=== PATIENT | male | born 1935 | race Two or more races ===

== ENCOUNTER → 2022-07-25 | Outpatient (CLI) | payer OTHER | END | disposition home or self-care (01) | LOC: LAB 12:20 | PROVIDERS: ATTEND Urology | DX: N40.1 Benign prostatic hyperplasia with lower urinary tract symptoms (principal) | CPT/HCPCS: 84153 ==

== ENCOUNTER → 2022-12-12 | Outpatient (CLI) | payer OTHER | END | disposition home or self-care (01) | LOC: XYW 12:48 | PROVIDERS: ATTEND Student in an Organized Health Care Education/Training Program | DX: I08.2 Rheumatic disorders of both aortic and tricuspid valves (principal); R06.02 Shortness of breath | CPT/HCPCS: 93306 ==

== ENCOUNTER 2023-03-20 03:58 | Inpatient (IN) | payer OTHER ==
[~2023-03-20] VITALS: Ht 182.9 cm; Wt 81.6 kg
[2023-03-20 04:52] LABS: Hematocrit 39.6 % (41.0-53.0); Hemoglobin 13.3 g/dL (13.5-17.5); Mean Corpuscular Hemoglobin 32.2 pg (28.0-32.0); Mean Corpuscular Hgb Conc. 33.6 g/dL (32.0-36.0); Mean Corpuscular Volume 95.6 fL (80.0-100.0); Red Blood Cells 4.14 10^6/uL (4.5-5.90); Red Cell Distribution Width 15.3 % (11.8-14.3); White Blood Cell 7.8 10^3/uL (4.4-10.8)
[2023-03-20 04:58] LABS: Chloride 109 mmol/L (98-107); Potassium 4.2 mmol/L (3.5-5.1); Sodium 141 mmol/L (136-145)
[2023-03-20 04:59] LABS: Anion Gap 8 (5-15); Carbon Dioxide 24 mmol/L (20-30)
[2023-03-20 05:00] VITALS: PULSE 60; RESP 22; O2SAT 96
[2023-03-20 05:00] LABS: Calcium 9.1 mg/dL (8.7-10.4)
[2023-03-20 05:02] LABS: Band Neutrophils % (manual) 0; Basophils % (manual) 0 (0.0-2.0); Blast Cells 0; Eosinophils % (manual) 0 (0-7); Metamyelocytes % 0; Myelocytes % 0; Promyelocytes % 0; Reactive Lymphocytes 0
[2023-03-20 05:04] LABS: BUN/Creatinine Ratio 11.9 (10.0-20.0); Blood Urea Nitrogen 17 mg/dL (9-23); Glucose 126 mg/dL (74-106)
[2023-03-20] MEDS: ONDANSETRON HCL 4 MG/2 ML VIAL IV ONE (05:52)
[2023-03-20] MEDS: MORPHINE SULFATE 4 MG/ML SYR/VIAL IV ONE (05:53)
[2023-03-20] MEDS: SODIUM CHLORIDE 0.9% 1,000 ML IV ONE (05:54)
[2023-03-20 05:56] LABS: Urine Epithelial Cast None Seen /hpf (<5)
[2023-03-20 06:32] LABS: Urine Bacteria FEW /hpf (None Seen); Urine Blood 2+ /uL (Negative); Urine Clarity HAZY (Clear); Urine Color Yellow (Yellow); Urine Hyaline Cast FEW /lpf (0 - 2); Urine Protein, UAD TRACE (Negative); Urine Specific Gravity 1.025 (1.001-1.035); Urine WBC 5 /hpf (0 - 3)
[2023-03-20 06:40] LABS: Lymphocytes % (manual) 70 (10.0-50.0); Monocytes % (manual) 6 (0-12)
[2023-03-20 06:41] LABS: Platelet Estimate Adequate
[2023-03-20] MEDS: D5W/SOD CHLO 0.9% 1,000 ML IV SCH (06:59)
[2023-03-20 07:02] LABS: INR 1.08 (0.9-1.15); Prothrombin Time 11.3 sec (9.3-11.8)
[2023-03-20 08:00] VITALS: PULSE 60; RESP 14; O2SAT 98
[2023-03-20] MEDS: GASTROGRAFIN 120 ML SOL ONE (08:39)
[2023-03-20 09:13] LABS: Albumin 4.5 g/dL (3.2-4.8); Bilirubin, Direct 0.2 mg/dL (<0.3); Bilirubin, Total 0.7 mg/dL (0.2-1.0); Total Protein 6.7 g/dL (5.7-8.2)
[2023-03-20 09:26] LABS: Amphetamine Screen, Urine Neg (NEGATIVE)
[2023-03-20 09:27] LABS: Barbiturate Scree,Urine Neg (NEGATIVE); Benzodiazephine Screen, Urine Neg (NEGATIVE); Cannabinoid Screen, Urine Neg (NEGATIVE); Cocaine Screen, Urine Neg (NEGATIVE); Opiate Scree,Urine Neg (NEGATIVE); Phencyclidine Screen, Urine Neg (NEGATIVE)
[2023-03-20 10:12] LABS: Magnesium 2.3 mg/dL (1.6-2.6)
[2023-03-20 10:46] VITALS: BP 109/74; PULSE 60; RESP 18; TEMP 98.9; O2SAT 98
[2023-03-20 11:40] VITALS: BP 109/74; PULSE 60; RESP 16; TEMP 98.9; O2SAT 98
[2023-03-20] MEDS: ONDANSETRON HCL 4 MG/2 ML VIAL IV PRN (12:10)
[2023-03-20] MEDS: MORPHINE SULFATE INJ 2 MG/ml SYRG IV PRN (12:11)
[2023-03-20] MEDS: metroNIDAZOLE 500MG/100ML 100 ML IV ONE (13:20)
[2023-03-20] MEDS: cefTRIAXone 1GM/50ML D5W 50 ML IV ONE (13:26)
[2023-03-20] MEDS: metroNIDAZOLE 500MG/100ML 100 ML IV SCH (14:00)
[2023-03-20 16:25] VITALS: BP 120/72; PULSE 60; RESP 18; TEMP 98.7; O2SAT 96
[2023-03-20 20:00] VITALS: PULSE 60; RESP 16
[2023-03-20] MEDS: hydrALAZINE HCL 20 MG/ML VL IV PRN (22:24)
[2023-03-21] VITALS (56 sets, daily range): BP systolic 78–141; BP diastolic 48–82; PULSE 60–100; RESP 13–26; TEMP 97.8–98.9; O2SAT 79–100
[2023-03-21 07:32] LABS: Basophils # (auto) 0 10 ^3/uL (0-0.2); Basophils % (auto) 0.2 % (0.0-2.0); Eosinophils # (auto) 0 10 ^3/uL (0-0.8); Hematocrit 38.4 % (41.0-53.0); Hemoglobin 12.9 g/dL (13.5-17.5); Lymphocytes # (auto) 0.9 10 ^3/uL (0.4-5.4); Lymphocytes % (auto) 8.5 % (10.0-50.0); Mean Corpuscular Hemoglobin 32.3 pg (28.0-32.0); Mean Corpuscular Hgb Conc. 33.6 g/dL (32.0-36.0); Mean Corpuscular Volume 96.1 fL (80.0-100.0); Monocytes # (auto) 0.9 10 ^3/uL (0-1.3); Monocytes % (auto) 8.6 % (0.0-12.0); Neutrophils # (auto) 8.3 10 ^3/uL (1.6-8.6); Neutrophils % (auto) 82.7 % (37.0-80.0); Red Cell Distribution Width 15.6 % (11.8-14.3); White Blood Cell 10.1 10^3/uL (4.4-10.8)
[2023-03-21 07:40] LABS: Alanine Aminotransferase 32 U/L (7-40); Alkaline Phosphatase 97 U/L (46-116); Anion Gap 9 (5-15); BUN/Creatinine Ratio 11.6 (10.0-20.0); Blood Urea Nitrogen 13 mg/dL (9-23); Calcium 9.3 mg/dL (8.5-10.1); Carbon Dioxide 24 mmol/L (20-30); Chloride 111 mmol/L (98-107); Glucose 132 mg/dL (74-106); Potassium 3.5 mmol/L (3.5-5.1); Sodium 144 mmol/L (136-145)
[2023-03-21 07:41] LABS: Albumin 4.3 g/dL (3.2-4.8); Aspartate Aminotransferase 32 U/L (13-40); Bilirubin, Total 0.8 mg/dL (0.2-1.0)
[2023-03-21 07:42] LABS: Total Protein 6.5 g/dL (5.7-8.2)
[2023-03-21] MEDS ORDERED: ONDANSETRON HCL 4 MG/2 ML VIAL IV PRN ×2 (10:15→11:15)
[2023-03-21] MEDS ORDERED: HYDROmorphone HCL 2 MG/ML VL/or syr IV PRN ×2 (10:15→11:15)
[2023-03-21] MEDS ORDERED: metroNIDAZOLE 500MG/100ML 100 ML IV ONE (10:15)
[2023-03-21] MEDS: BUPIVACAINE 0.5% P/F INJ 10 ML VIAL ONE (10:40)
[2023-03-21] MEDS: LIDOCAINE W/ EPINEPHRINE 1% 20ML VIAL ONE (10:40)
[2023-03-21] MEDS: LIDOCAINE 2% JELLY 11ml (GLYDO) ONE (10:54)
[2023-03-21] MEDS: IPRATROPIUM BROM 0.5 MG/2.5ML INH SOL NEB ONE (11:30)
[2023-03-21] MEDS: ALBUTEROL SULF 2.5 MG/0.5ML(0.5%) NEB SOLN NEB ONE (11:30)
[2023-03-21 12:58] LABS: Base Excess -4.1 mmol/L (-2.0-2.0)
[2023-03-21] MEDS: cefTRIAXone 1GM/50ML D5W 50 ML IV SCH (13:11)
[2023-03-21] MEDS: FUROSEMIDE 40 MG/4 ML VIAL IV ONE (13:11)
[2023-03-21] MEDS: fentaNYL Drip 2500mCg/250mlNS 250 ML IV SCH (13:17)
[2023-03-21 13:20] LABS: Base Excess -3.3 mmol/L (-2.0-2.0)
[2023-03-21] MEDS: MIDAZOLAM DRIP 50 mg/50mL 50 ML IV SCH (13:33)
[2023-03-21] MEDS: D5W/SOD CHL 0.45%/KCL 20MEQ 1,000 ML IV SCH (13:41)
[2023-03-21] MEDS: NOREPINEPHRINE 8 MG/250ML KIT 250 ML IV SCH (16:00)
[2023-03-21] MEDS: ALBUMIN 25% 50 ML IV SCH (16:15)
[2023-03-21 16:29] LABS: Basophils # (auto) 0 10 ^3/uL (0-0.2); Basophils % (auto) 0.1 % (0.0-2.0); Eosinophils # (auto) 0 10 ^3/uL (0-0.8); Hemoglobin 12.2 g/dL (13.5-17.5); Lymphocytes # (auto) 0.6 10 ^3/uL (0.4-5.4); Mean Corpuscular Hemoglobin 31.5 pg (28.0-32.0); Mean Corpuscular Volume 95.5 fL (80.0-100.0); Monocytes # (auto) 0.7 10 ^3/uL (0-1.3); Monocytes % (auto) 7.1 % (0.0-12.0); Neutrophils # (auto) 8.2 10 ^3/uL (1.6-8.6); Neutrophils % (auto) 86.8 % (37.0-80.0); Nucleated Red Blood Cells % 0.1 %; Red Blood Cells 3.87 10^6/uL (4.5-5.90); Red Cell Distribution Width 15.3 % (11.8-14.3); White Blood Cell 9.4 10^3/uL (4.4-10.8)
[2023-03-21 16:44] LABS: Alanine Aminotransferase 30 U/L (7-40); Albumin 3.7 g/dL (3.2-4.8); Alkaline Phosphatase 78 U/L (46-116); Anion Gap 7 (5-15); Aspartate Aminotransferase 39 U/L (13-40); BUN/Creatinine Ratio 11.3 (10.0-20.0); Blood Urea Nitrogen 11 mg/dL (9-23); Calcium 8.5 mg/dL (8.5-10.1); Carbon Dioxide 23 mmol/L (20-30); Chloride 112 mmol/L (98-107); Glucose 186 mg/dL (74-106); Potassium 3.7 mmol/L (3.5-5.1); Sodium 142 mmol/L (136-145)
[2023-03-21 16:45] LABS: Bilirubin, Total 0.6 mg/dL (0.2-1.0); Total Protein 5.7 g/dL (5.7-8.2)
[2023-03-21 16:53] LABS: CRP High Sensitivity 7.41 mg/dL (<1.0)
[2023-03-21] MEDS ORDERED: FUROSEMIDE 40 MG/4 ML VIAL IV SCH (18:00)
[2023-03-21] MEDS: SODIUM CHLORIDE 0.9% 1,000 ML IV ONE (18:04)
[2023-03-21 19:03] LABS: Base Excess -2.2 mmol/L (-2.0-2.0)
[2023-03-22] VITALS (108 sets, daily range): BP systolic 86–130; BP diastolic 47–83; PULSE 60–91; RESP 12–26; TEMP 97.6–101.7; O2SAT 84–100
[2023-03-22 03:59] LABS: Alanine Aminotransferase 28 U/L (7-40); Albumin 3.8 g/dL (3.2-4.8); Alkaline Phosphatase 61 U/L (46-116); Aspartate Aminotransferase 32 U/L (13-40); BUN/Creatinine Ratio 16.7 (10.0-20.0); Blood Urea Nitrogen 15 mg/dL (9-23); Calcium 8.6 mg/dL (8.5-10.1); Chloride 112 mmol/L (98-107); Glucose 147 mg/dL (74-106); Potassium 3.6 mmol/L (3.5-5.1); Sodium 142 mmol/L (136-145)
[2023-03-22 04:00] LABS: Basophils # (auto) 0 10 ^3/uL (0-0.2); Bilirubin, Total 0.9 mg/dL (0.2-1.0); Eosinophils # (auto) 0 10 ^3/uL (0-0.8); Hematocrit 31.4 % (41.0-53.0); Hemoglobin 10.9 g/dL (13.5-17.5); Lymphocytes # (auto) 1.3 10 ^3/uL (0.4-5.4); Lymphocytes % (auto) 12.9 % (10.0-50.0); Mean Corpuscular Hemoglobin 33.1 pg (28.0-32.0); Mean Corpuscular Hgb Conc. 34.6 g/dL (32.0-36.0); Mean Corpuscular Volume 95.8 fL (80.0-100.0); Monocytes # (auto) 0.9 10 ^3/uL (0-1.3); Monocytes % (auto) 8.5 % (0.0-12.0); Neutrophils % (auto) 78.6 % (37.0-80.0); Red Blood Cells 3.28 10^6/uL (4.5-5.90); Red Cell Distribution Width 15.3 % (11.8-14.3); Total Protein 5.4 g/dL (5.7-8.2); White Blood Cell 10.2 10^3/uL (4.4-10.8)
[2023-03-22 05:49] LABS: Anion Gap 7 (5-15); Carbon Dioxide 23 mmol/L (20-30)
[2023-03-22 06:44] LABS: Base Excess -3.4 mmol/L (-2.0-2.0)
[2023-03-22] MEDS ORDERED: cefTRIAXone 1GM/50ML D5W 50 ML IV SCH (09:00)
[2023-03-22] MEDS ORDERED: CLINIMIX PER PHARMACY 0 ML IV SCH (09:15)
[2023-03-22] MEDS ORDERED: DEXTROSE (50%) 50ML SYRG IV PRN (09:15)
[2023-03-22] MEDS: D5W/SOD CHL 0.45%/KCL 20MEQ 1,000 ML IV SCH (09:30)
[2023-03-22] MEDS: FLEET ENEMA(ADULT) 135 ML PR ONE (10:23)
[2023-03-22] MEDS: PANTOPRAZOLE 40 MG/10 ML VIAL INJ IV SCH (10:24)
[2023-03-22] MEDS: METOCLOPRAMIDE HCL 5MG/ml INJ 2ml VIAL IV ONE (10:26)
[2023-03-22] MEDS: FUROSEMIDE 20 MG/2 ML VIAL IV SCH (11:00)
[2023-03-22] MEDS: ACCU-CHEK COMFORT CURVE STRIP VI SCH (12:19)
[2023-03-22] MEDS: InsuLIN REG 1unit/0.01ml Soln (100units/ml) SC SCH (12:19)
[2023-03-22 16:34] LABS: Magnesium 1.7 mg/dL (1.6-2.6)
[2023-03-22 16:35] LABS: Phosphorus 2.5 mg/dL (2.4-5.1)
[2023-03-22] MEDS: METOCLOPRAMIDE HCL 5MG/ml INJ 2ml VIAL IV SCH (17:21)
[2023-03-22] MEDS: MAGNESIUM SULFATE 1GM/100ML 100 ML IV ONE (18:37)
[2023-03-22] MEDS: ACETAMINOPHEN 650 MG RECT SUPP PR ONE (19:18)
[2023-03-22] MEDS: AMINO ACID INFUSION IN D10W 1,000 ML IV SCH (20:00)
[2023-03-22] MEDS: POTASSIUM PHOSPHATE 22 MEQ in SODIUM CHL 0.9% 100 ML IV ONE (20:41)
[2023-03-23] VITALS (111 sets, daily range): BP systolic 83–113; BP diastolic 37–74; PULSE 59–132; RESP 13–22; TEMP 98.3–101.1; O2SAT 87–99
[2023-03-23] MEDS: InsuLIN REG 1unit/0.01ml Soln (100units/ml) SC SCH
[2023-03-23] MEDS: ACCU-CHEK COMFORT CURVE STRIP VI SCH
[2023-03-23 03:59] LABS: Basophils # (auto) 0 10 ^3/uL (0-0.2); Basophils % (auto) 0.1 % (0.0-2.0); Eosinophils # (auto) 0 10 ^3/uL (0-0.8); Eosinophils % (auto) 0.1 % (0.0-7.0); Hematocrit 35.7 % (41.0-53.0); Hemoglobin 12.1 g/dL (13.5-17.5); Lymphocytes # (auto) 1.5 10 ^3/uL (0.4-5.4); Lymphocytes % (auto) 16.4 % (10.0-50.0); Mean Corpuscular Hemoglobin 32.5 pg (28.0-32.0); Mean Corpuscular Hgb Conc. 33.8 g/dL (32.0-36.0); Monocytes # (auto) 0.9 10 ^3/uL (0-1.3); Monocytes % (auto) 9.9 % (0.0-12.0); Neutrophils # (auto) 6.5 10 ^3/uL (1.6-8.6); Neutrophils % (auto) 73.5 % (37.0-80.0); Red Blood Cells 3.72 10^6/uL (4.5-5.90); Red Cell Distribution Width 16.1 % (11.8-14.3); White Blood Cell 8.9 10^3/uL (4.4-10.8)
[2023-03-23 04:16] LABS: Alanine Aminotransferase 26 U/L (7-40); Albumin 3.6 g/dL (3.2-4.8); Alkaline Phosphatase 76 U/L (46-116); Anion Gap 6 (5-15); Aspartate Aminotransferase 30 U/L (13-40); BUN/Creatinine Ratio 17.3 (10.0-20.0); Blood Urea Nitrogen 22 mg/dL (9-23); Calcium 8.6 mg/dL (8.5-10.1); Carbon Dioxide 24 mmol/L (20-30); Chloride 112 mmol/L (98-107); Glucose 139 mg/dL (74-106); Potassium 3.7 mmol/L (3.5-5.1); Sodium 142 mmol/L (136-145)
[2023-03-23 04:17] LABS: Bilirubin, Total 0.6 mg/dL (0.2-1.0); Creatine Kinase IFCC 132 U/L (46-171); Phosphorus 4.3 mg/dL (2.4-5.1); Total Protein 5.5 g/dL (5.7-8.2)
[2023-03-23 04:25] LABS: CRP High Sensitivity 17.57 mg/dL (<1.0)
[2023-03-23 07:37] LABS: Base Excess -4.7 mmol/L (-2.0-2.0)
[2023-03-23] MEDS: FLEET ENEMA(ADULT) 135 ML PR ONE ×2 (13:45→14:04)
[2023-03-24] VITALS (115 sets, daily range): BP systolic 85–120; BP diastolic 50–68; PULSE 60–104; RESP 14–21; TEMP 97.4–101; O2SAT 92–99
[2023-03-24] MEDS: ACETAMINOPHEN 650 MG RECT SUPP PR PRN (04:54)
[2023-03-24 05:52] LABS: Basophils # (auto) 0 10 ^3/uL (0-0.2); Basophils % (auto) 0.3 % (0.0-2.0); Eosinophils # (auto) 0 10 ^3/uL (0-0.8); Eosinophils % (auto) 0.2 % (0.0-7.0); Hematocrit 36.9 % (41.0-53.0); Hemoglobin 12.4 g/dL (13.5-17.5); Lymphocytes % (auto) 10.5 % (10.0-50.0); Mean Corpuscular Hemoglobin 32.1 pg (28.0-32.0); Mean Corpuscular Hgb Conc. 33.6 g/dL (32.0-36.0); Mean Corpuscular Volume 95.5 fL (80.0-100.0); Monocytes % (auto) 10.1 % (0.0-12.0); Neutrophils # (auto) 7.9 10 ^3/uL (1.6-8.6); Neutrophils % (auto) 78.9 % (37.0-80.0); Red Blood Cells 3.86 10^6/uL (4.5-5.90); Red Cell Distribution Width 15.5 % (11.8-14.3)
[2023-03-24 06:21] LABS: Alanine Aminotransferase 17 U/L (7-40); Albumin 3.3 g/dL (3.2-4.8); Alkaline Phosphatase 76 U/L (46-116); Anion Gap 9 (5-15); Aspartate Aminotransferase 19 U/L (13-40); BUN/Creatinine Ratio 24.3 (10.0-20.0); Bilirubin, Total 0.5 mg/dL (0.2-1.0); Blood Urea Nitrogen 28 mg/dL (9-23); Calcium 7.7 mg/dL (8.7-10.4); Carbon Dioxide 22 mmol/L (20-30); Chloride 110 mmol/L (98-107); Glucose 154 mg/dL (74-106); Magnesium 1.6 mg/dL (1.6-2.6); Phosphorus 4.6 mg/dL (2.4-5.1); Potassium 3.1 mmol/L (3.5-5.1); Sodium 141 mmol/L (136-145); Total Protein 5.2 g/dL (5.7-8.2)
[2023-03-24] MEDS ORDERED: VANCOMYCIN PER PHARMACY 0 MG IV SCH (07:15)
[2023-03-24 08:16] LABS: Base Excess -4.9 mmol/L (-2.0-2.0)
[2023-03-24] MEDS: FLEET ENEMA(ADULT) 135 ML PR ONE (09:00)
[2023-03-24] MEDS: VANCOMYCIN 1GM/200ML 200 ML IV ONE (09:11)
[2023-03-24] MEDS: CALCIUM GLUC 1,000mg/50ml-NS 50 ML IV ONE (09:24)
[2023-03-24] MEDS: POTASSIUM CHL 20MEQ/100ML 100 ML IV SCH (09:27)
[2023-03-24] MEDS: MAGNESIUM SULFATE 1GM/100ML 100 ML IV ONE (10:13)
[2023-03-24] MEDS: ONDANSETRON HCL 4 MG/2 ML VIAL IV SCH (11:40)
[2023-03-24] MEDS: OMNIPAQUE 12mg/ml 500ml ORAL SOLUTION PO ONE (19:33)
[2023-03-24 22:35] LABS: Potassium 3.5 mmol/L (3.5-5.1)
[2023-03-24 22:42] LABS: Magnesium 1.8 mg/dL (1.6-2.6)
[2023-03-24 22:44] LABS: Phosphorus 2.8 mg/dL (2.4-5.1)
[2023-03-25] VITALS (102 sets, daily range): BP systolic 74–173; BP diastolic 39–90; PULSE 60–134; RESP 12–22; TEMP 97.3–99.1; O2SAT 90–99
[2023-03-25] MEDS: VANCOMYCIN 1GM/200ML 200 ML IV SCH (03:12)
[2023-03-25 04:24] LABS: Basophils # (auto) 0 10 ^3/uL (0-0.2); Basophils % (auto) 0.2 % (0.0-2.0); Eosinophils # (auto) 0.1 10 ^3/uL (0-0.8); Eosinophils % (auto) 0.5 % (0.0-7.0); Hematocrit 35.4 % (41.0-53.0); Hemoglobin 11.9 g/dL (13.5-17.5); Lymphocytes # (auto) 0.7 10 ^3/uL (0.4-5.4); Lymphocytes % (auto) 6.3 % (10.0-50.0); Mean Corpuscular Hemoglobin 31.9 pg (28.0-32.0); Mean Corpuscular Hgb Conc. 33.5 g/dL (32.0-36.0); Mean Corpuscular Volume 95.3 fL (80.0-100.0); Monocytes # (auto) 0.7 10 ^3/uL (0-1.3); Monocytes % (auto) 6.5 % (0.0-12.0); Neutrophils # (auto) 9.8 10 ^3/uL (1.6-8.6); Neutrophils % (auto) 86.5 % (37.0-80.0); Red Blood Cells 3.72 10^6/uL (4.5-5.90); Red Cell Distribution Width 15.9 % (11.8-14.3); White Blood Cell 11.4 10^3/uL (4.4-10.8)
[2023-03-25 04:44] LABS: Alanine Aminotransferase 15 U/L (7-40); Alkaline Phosphatase 79 U/L (46-116); Anion Gap 6 (5-15); Blood Urea Nitrogen 22 mg/dL (9-23); Calcium 8.1 mg/dL (8.7-10.4); Carbon Dioxide 21 mmol/L (20-30); Chloride 110 mmol/L (98-107); Glucose 126 mg/dL (74-106); Magnesium 1.9 mg/dL (1.6-2.6); Potassium 3.6 mmol/L (3.5-5.1); Sodium 137 mmol/L (136-145)
[2023-03-25 04:45] LABS: Albumin 3.2 g/dL (3.2-4.8); Aspartate Aminotransferase 24 U/L (13-40); Bilirubin, Total 0.4 mg/dL (0.2-1.0); Creatine Kinase IFCC 300 U/L (46-171); Phosphorus 2.8 mg/dL (2.4-5.1); Total Protein 5.1 g/dL (5.7-8.2)
[2023-03-25 05:24] LABS: CRP High Sensitivity > 20.00 mg/dL (<1.0)
[2023-03-25] MEDS: AMIODARONE BOLUS KIT 100 ML IV ONE (06:24)
[2023-03-25] MEDS: AMIODARONE 450mg/250ml AE 250 ML IV SCH (06:44)
[2023-03-25 07:43] LABS: Base Excess -9.3 mmol/L (-2.0-2.0)
[2023-03-25 08:17] LABS: INR 1.17 (0.9-1.15); Partial Thromboplastin Time 40.7 SEC (24.5-34.5); Prothrombin Time 12.2 sec (9.3-11.8)
[2023-03-25] MEDS: VASOPRESSIN 20 UNITS in SODIUM CHL 0.9% 99 ML IV SCH (12:00)
[2023-03-25] MEDS ORDERED: AMIODARONE 450mg/250ml AE 250 ML IV SCH (12:15)
[2023-03-25] MEDS: EPINEPHrine HCL 250 ML IV SCH (12:15)
[2023-03-25] MEDS: SODIUM CHLORIDE 0.9% 1,000 ML IV ONE (12:15)
[2023-03-25] MEDS: PHENYLEPHRINE IV 250 ML IV SCH (12:28)
[2023-03-25] MEDS: LACTATED RINGER'S 1,000 ML IV SCH (12:28)
[2023-03-25] MEDS: ALBUMIN 25% 50 ML IV ONE (15:53)
[2023-03-26] VITALS (112 sets, daily range): BP systolic 94–170; BP diastolic 45–84; PULSE 60–114; RESP 12–22; TEMP 97.3–98.8; O2SAT 94–100
[2023-03-26 03:58] LABS: Basophils # (auto) 0 10 ^3/uL (0-0.2); Basophils % (auto) 0.1 % (0.0-2.0); Eosinophils # (auto) 0 10 ^3/uL (0-0.8); Hematocrit 34.6 % (41.0-53.0); Hemoglobin 11.4 g/dL (13.5-17.5); Lymphocytes # (auto) 0.4 10 ^3/uL (0.4-5.4); Lymphocytes % (auto) 2.5 % (10.0-50.0); Mean Corpuscular Hemoglobin 30.8 pg (28.0-32.0); Mean Corpuscular Volume 93.3 fL (80.0-100.0); Monocytes # (auto) 0.9 10 ^3/uL (0-1.3); Monocytes % (auto) 4.9 % (0.0-12.0); Neutrophils # (auto) 16.6 10 ^3/uL (1.6-8.6); Neutrophils % (auto) 92.5 % (37.0-80.0); Nucleated Red Blood Cells % 0.1 %; Red Blood Cells 3.71 10^6/uL (4.5-5.90); Red Cell Distribution Width 17.9 % (11.8-14.3); White Blood Cell 17.9 10^3/uL (4.4-10.8)
[2023-03-26 04:06] LABS: INR 1.21 (0.9-1.15); Partial Thromboplastin Time 43.1 SEC (24.5-34.5); Prothrombin Time 12.5 sec (9.3-11.8)
[2023-03-26 04:11] LABS: Alanine Aminotransferase 27 U/L (7-40); Albumin 2.7 g/dL (3.2-4.8); Alkaline Phosphatase 84 U/L (46-116); Anion Gap 7 (5-15); Aspartate Aminotransferase 68 U/L (13-40); BUN/Creatinine Ratio 21.6 (10.0-20.0); Blood Urea Nitrogen 22 mg/dL (9-23); Calcium 8.1 mg/dL (8.5-10.1); Carbon Dioxide 18 mmol/L (20-30); Chloride 114 mmol/L (98-107); Glucose 206 mg/dL (74-106); Potassium 4.1 mmol/L (3.5-5.1); Sodium 139 mmol/L (136-145)
[2023-03-26 04:12] LABS: Bilirubin, Total 0.3 mg/dL (0.2-1.0); Phosphorus 3.2 mg/dL (2.4-5.1); Total Protein 4.3 g/dL (5.7-8.2)
[2023-03-26 04:20] LABS: CRP High Sensitivity 18.66 mg/dL (<1.0)
[2023-03-26 04:33] LABS: Magnesium 1.5 mg/dL (1.6-2.6)
[2023-03-26 07:41] LABS: Base Excess -11.2 mmol/L (-2.0-2.0)
[2023-03-26] MEDS: MAGNESIUM SULFATE 1GM/100ML 100 ML IV SCH (09:47)
[2023-03-26] MEDS: ALBUMIN 25% 50 ML IV ONE (09:56)
[2023-03-27] VITALS (105 sets, daily range): BP systolic 90–190; BP diastolic 30–80; PULSE 60–87; RESP 10–32; TEMP 96.8–100.9; O2SAT 85–100
[2023-03-27 03:51] LABS: Basophils # (auto) 0 10 ^3/uL (0-0.2); Basophils % (auto) 0.1 % (0.0-2.0); Eosinophils # (auto) 0 10 ^3/uL (0-0.8); Hematocrit 28.2 % (41.0-53.0); Hemoglobin 9.5 g/dL (13.5-17.5); Lymphocytes # (auto) 0.6 10 ^3/uL (0.4-5.4); Mean Corpuscular Hemoglobin 30.5 pg (28.0-32.0); Mean Corpuscular Hgb Conc. 33.6 g/dL (32.0-36.0); Mean Corpuscular Volume 90.9 fL (80.0-100.0); Monocytes # (auto) 0.7 10 ^3/uL (0-1.3); Monocytes % (auto) 6.3 % (0.0-12.0); Neutrophils # (auto) 9.3 10 ^3/uL (1.6-8.6); Neutrophils % (auto) 87.6 % (37.0-80.0); Nucleated Red Blood Cells % 0.2 %; Red Cell Distribution Width 17.1 % (11.8-14.3); White Blood Cell 10.6 10^3/uL (4.4-10.8)
[2023-03-27 04:10] LABS: Alanine Aminotransferase 21 U/L (7-40); Albumin 2.6 g/dL (3.2-4.8); Alkaline Phosphatase 73 U/L (46-116); Anion Gap 5 (5-15); Aspartate Aminotransferase 35 U/L (13-40); BUN/Creatinine Ratio 33.3 (10.0-20.0); Bilirubin, Total 0.2 mg/dL (0.2-1.0); Blood Urea Nitrogen 28 mg/dL (9-23); Calcium 7.8 mg/dL (8.7-10.4); Carbon Dioxide 22 mmol/L (20-30); Chloride 114 mmol/L (98-107); Glucose 111 mg/dL (74-106); Magnesium 1.7 mg/dL (1.6-2.6); Phosphorus 1.8 mg/dL (2.4-5.1); Potassium 3.8 mmol/L (3.5-5.1); Sodium 141 mmol/L (136-145)
[2023-03-27 05:54] LABS: CRP High Sensitivity 10.95 mg/dL (<1.0)
[2023-03-27 08:20] LABS: Base Excess -7.6 mmol/L (-2.0-2.0)
[2023-03-27 09:45] LABS: Base Excess -5.6 mmol/L (-2.0-2.0)
[2023-03-27 09:47] LABS: Base Excess -6.8 mmol/L (-2.0-2.0)
[2023-03-27] MEDS: POTASSIUM PHOSPHATE 22 MEQ in SODIUM CHL 0.9% 100 ML IV ONE (15:08)
[2023-03-27] MEDS: FUROSEMIDE 20 MG/2 ML VIAL IV SCH (22:15)
[2023-03-28] VITALS (109 sets, daily range): BP systolic 90–149; BP diastolic 34–119; PULSE 60–64; RESP 14–22; TEMP 98.1–100.4; O2SAT 97–100
[2023-03-28 04:10] LABS: Basophils # (auto) 0 10 ^3/uL (0-0.2); Eosinophils # (auto) 0 10 ^3/uL (0-0.8); Eosinophils % (auto) 0.1 % (0.0-7.0); Hematocrit 28.9 % (41.0-53.0); Hemoglobin 9.8 g/dL (13.5-17.5); Lymphocytes # (auto) 0.7 10 ^3/uL (0.4-5.4); Lymphocytes % (auto) 6.2 % (10.0-50.0); Monocytes # (auto) 0.6 10 ^3/uL (0-1.3); Monocytes % (auto) 4.8 % (0.0-12.0); Neutrophils # (auto) 10.6 10 ^3/uL (1.6-8.6); Neutrophils % (auto) 88.9 % (37.0-80.0); Nucleated Red Blood Cells % 0.2 %; Red Blood Cells 3.17 10^6/uL (4.5-5.90); Red Cell Distribution Width 16.7 % (11.8-14.3); White Blood Cell 11.9 10^3/uL (4.4-10.8)
[2023-03-28 04:23] LABS: Alanine Aminotransferase 21 U/L (7-40); Alkaline Phosphatase 88 U/L (46-116); Anion Gap 6 (5-15); Aspartate Aminotransferase 49 U/L (13-40); Blood Urea Nitrogen 30 mg/dL (9-23); Calcium 7.9 mg/dL (8.7-10.4); Carbon Dioxide 24 mmol/L (20-30); Chloride 112 mmol/L (98-107); Glucose 130 mg/dL (74-106); Magnesium 1.7 mg/dL (1.6-2.6); Potassium 3.1 mmol/L (3.5-5.1); Sodium 142 mmol/L (136-145)
[2023-03-28 04:25] LABS: Albumin 2.7 g/dL (3.2-4.8); Bilirubin, Total 0.3 mg/dL (0.2-1.0); Phosphorus 2.5 mg/dL (2.4-5.1); Total Protein 4.2 g/dL (5.7-8.2)
[2023-03-28 04:44] LABS: CRP High Sensitivity 13.89 mg/dL (<1.0); Cholesterol 65 mg/dL (< 200); HDL Cholesterol 14 mg/dL (40-59); LDL Cholesterol 33 mg/dL (< 100); Triglycerides 91 mg/dL (< 150)
[2023-03-28] MEDS: MAGNESIUM SULFATE 1GM/100ML 100 ML IV SCH (05:12)
[2023-03-28] MEDS: POTASSIUM CHL 20MEQ/100ML 100 ML IV SCH (05:12)
[2023-03-28] MEDS ORDERED: POTASSIUM CHLORIDE 60 MEQ, LIDOCAINE 1% (LOCAL ANESTH.) 6 ML in SODIUM CHL 0.9% 500 ML IV ONE (07:15)
[2023-03-28 07:57] LABS: Base Excess -3.8 mmol/L (-2.0-2.0)
[2023-03-28] MEDS: LIDOCAINE 2% JELLY 11ml (GLYDO) ONE (08:50)
[2023-03-28] MEDS: IOHEXOL 350 MG/ML 100ML IJ ONE (08:50)
[2023-03-28] MEDS: PHENYLEPHRINE IV 250 ML IV ONE (08:50)
[2023-03-28] MEDS: POVIDONE IODINE 10 % TOPICAL OINT 30GM TOP ONE (10:18)
[2023-03-28 11:06] LABS: % Iron Saturation 37.1 % (20-55)
[2023-03-28 12:56] LABS: Base Excess -1.5 mmol/L (-2.0-2.0)
[2023-03-28] MEDS: POTASSIUM PHOSPHATE 22 MEQ in SODIUM CHL 0.9% 100 ML IV ONE (15:47)
[2023-03-28] MEDS: ENOXAPARIN SOD 30 MG/0.3 ML SYRINGE SC ONE (16:36)
[2023-03-29] VITALS (103 sets, daily range): BP systolic 86–186; BP diastolic 43–101; PULSE 58–157; RESP 12–25; TEMP 96.8–100.2; O2SAT 96–100
[2023-03-29 03:55] LABS: Basophils # (auto) 0 10 ^3/uL (0-0.2); Basophils % (auto) 0.1 % (0.0-2.0); Eosinophils # (auto) 0 10 ^3/uL (0-0.8); Eosinophils % (auto) 0.2 % (0.0-7.0); Hematocrit 27.9 % (41.0-53.0); Hemoglobin 9.4 g/dL (13.5-17.5); Lymphocytes # (auto) 0.7 10 ^3/uL (0.4-5.4); Lymphocytes % (auto) 5.7 % (10.0-50.0); Mean Corpuscular Hgb Conc. 33.6 g/dL (32.0-36.0); Mean Corpuscular Volume 92.4 fL (80.0-100.0); Monocytes # (auto) 0.6 10 ^3/uL (0-1.3); Monocytes % (auto) 4.6 % (0.0-12.0); Neutrophils # (auto) 11.4 10 ^3/uL (1.6-8.6); Neutrophils % (auto) 89.4 % (37.0-80.0); Nucleated Red Blood Cells % 0.2 %; Red Blood Cells 3.02 10^6/uL (4.5-5.90); Red Cell Distribution Width 16.7 % (11.8-14.3); White Blood Cell 12.8 10^3/uL (4.4-10.8)
[2023-03-29 04:11] LABS: Alanine Aminotransferase 18 U/L (7-40); Albumin 2.6 g/dL (3.2-4.8); Alkaline Phosphatase 87 U/L (46-116); Anion Gap 6 (5-15); Aspartate Aminotransferase 35 U/L (13-40); Blood Urea Nitrogen 32 mg/dL (9-23); Calcium 7.8 mg/dL (8.7-10.4); Carbon Dioxide 26 mmol/L (20-30); Chloride 110 mmol/L (98-107); Glucose 116 mg/dL (74-106); Magnesium 1.9 mg/dL (1.6-2.6); Potassium 3.3 mmol/L (3.5-5.1); Sodium 142 mmol/L (136-145)
[2023-03-29 04:12] LABS: Bilirubin, Total 0.3 mg/dL (0.2-1.0); Total Protein 4.1 g/dL (5.7-8.2)
[2023-03-29 04:41] LABS: CRP High Sensitivity 13.36 mg/dL (<1.0)
[2023-03-29 07:20] LABS: Base Excess -2.2 mmol/L (-2.0-2.0)
[2023-03-29] MEDS ORDERED: Jevity 1.2 Cal/Fiber 1 Liter GT SCH (09:00)
[2023-03-29] MEDS: POTASSIUM CHLORIDE 80 MEQ, LIDOCAINE 1% (LOCAL ANESTH.) 6 ML in SODIUM CHL 0.9% 500 ML IV ONE (09:30)
[2023-03-29] MEDS: ENOXAPARIN SOD 30 MG/0.3 ML SYRINGE SC SCH (10:00)
[2023-03-29] MEDS ORDERED: POTASSIUM CHL 20MEQ/100ML 100 ML IV SCH (11:45)
[2023-03-29] MEDS: MEROPENEM 1GM IVPB 50 ML IV SCH (14:56)
[2023-03-29] MEDS: DIGOXIN (250MCG/ML) 2 ML AMPULE IV ONE (17:18)
[2023-03-29] MEDS: DexmedeTOMIDine 200 MCG in D5W 5% 48 ML IV SCH (18:03)
[2023-03-29] MEDS ORDERED: PROPOFOL 100 ML IV PRN (18:45)
[2023-03-29] MEDS ORDERED: TPN PER PHARMACY 0 ML IV SCH (18:45)
[2023-03-30] VITALS (105 sets, daily range): BP systolic 96–206; BP diastolic 35–144; PULSE 59–148; RESP 11–31; TEMP 96.8–100.9; O2SAT 88–100
[2023-03-30 04:36] LABS: Basophils # (auto) 0 10 ^3/uL (0-0.2); Basophils % (auto) 0.1 % (0.0-2.0); Eosinophils # (auto) 0.1 10 ^3/uL (0-0.8); Eosinophils % (auto) 0.4 % (0.0-7.0); Hematocrit 32.9 % (41.0-53.0); Hemoglobin 11.1 g/dL (13.5-17.5); Lymphocytes # (auto) 0.9 10 ^3/uL (0.4-5.4); Mean Corpuscular Hemoglobin 30.4 pg (28.0-32.0); Mean Corpuscular Hgb Conc. 33.8 g/dL (32.0-36.0); Mean Corpuscular Volume 90.1 fL (80.0-100.0); Monocytes # (auto) 0.8 10 ^3/uL (0-1.3); Monocytes % (auto) 3.7 % (0.0-12.0); Neutrophils # (auto) 20.2 10 ^3/uL (1.6-8.6); Neutrophils % (auto) 91.8 % (37.0-80.0); Nucleated Red Blood Cells % 0.3 %; Red Blood Cells 3.66 10^6/uL (4.5-5.90); Red Cell Distribution Width 16.7 % (11.8-14.3)
[2023-03-30 05:18] LABS: Alanine Aminotransferase 19 U/L (7-40); Albumin 2.8 g/dL (3.2-4.8); Alkaline Phosphatase 118 U/L (46-116); Anion Gap 8 (5-15); Aspartate Aminotransferase 40 U/L (13-40); BUN/Creatinine Ratio 34.6 (10.0-20.0); Bilirubin, Total 0.3 mg/dL (0.2-1.0); Blood Urea Nitrogen 27 mg/dL (9-23); Calcium 8.2 mg/dL (8.5-10.1); Carbon Dioxide 25 mmol/L (20-30); Chloride 110 mmol/L (98-107); Glucose 157 mg/dL (74-106); Phosphorus 2.7 mg/dL (2.4-5.1); Potassium 3.3 mmol/L (3.5-5.1); Sodium 143 mmol/L (136-145); Total Protein 4.6 g/dL (5.7-8.2)
[2023-03-30 06:03] LABS: Magnesium 1.8 mg/dL (1.6-2.6)
[2023-03-30] MEDS ORDERED: POTASSIUM CHLORIDE 40 MEQ in SOD CHL 0.45% 1,000 ML IV SCH (07:15)
[2023-03-30] MEDS: POTASSIUM CHL 20MEQ/100ML 100 ML IV SCH (10:18)
[2023-03-30] MEDS: AMIODARONE HCL (50 MG/ ML) 3 ML VIAL IV ONE (11:08)
[2023-03-30] MEDS: AMIODARONE BOLUS KIT 100 ML IV ONE ×2 (11:10)
[2023-03-30] MEDS: AMIODARONE 450mg/250ml AE 250 ML IV SCH ×2 (11:20→17:15)
[2023-03-30] MEDS: AMIODARONE 450mg/250ml AE 250 ML IV ONE (11:44)
[2023-03-30] MEDS ORDERED: TPN PER PHARMACY 0 ML IV SCH (12:30)
[2023-03-30] MEDS: HYDROmorphone HCL 2 MG/ML VL/or syr IV PRN (15:07)
[2023-03-30] MEDS: fentaNYL Drip 2500mCg/250mlNS 250 ML IV SCH (15:45)
[2023-03-30] MEDS: TPN PER PHARMACY IV NR (19:54)
[2023-03-30] MEDS: FUROSEMIDE 40 MG/4 ML VIAL IV SCH (21:42)
[2023-03-30] MEDS: DIGOXIN (250MCG/ML) 2 ML AMPULE IV PRN (22:58)
[2023-03-31] VITALS (111 sets, daily range): BP systolic 98–190; BP diastolic 42–113; PULSE 55–124; RESP 12–38; TEMP 98.1–100.2; O2SAT 95–100
[2023-03-31 04:30] LABS: Basophils # (auto) 0 10 ^3/uL (0-0.2); Basophils % (auto) 0.1 % (0.0-2.0); Eosinophils # (auto) 0 10 ^3/uL (0-0.8); Hematocrit 38.8 % (41.0-53.0); Hemoglobin 12.5 g/dL (13.5-17.5); Lymphocytes # (auto) 0.9 10 ^3/uL (0.4-5.4); Lymphocytes % (auto) 5.6 % (10.0-50.0); Mean Corpuscular Hemoglobin 30.4 pg (28.0-32.0); Mean Corpuscular Hgb Conc. 32.2 g/dL (32.0-36.0); Mean Corpuscular Volume 94.3 fL (80.0-100.0); Monocytes # (auto) 0.7 10 ^3/uL (0-1.3); Neutrophils # (auto) 15.3 10 ^3/uL (1.6-8.6); Neutrophils % (auto) 90.3 % (37.0-80.0); Nucleated Red Blood Cells % 0.6 %; Red Blood Cells 4.11 10^6/uL (4.5-5.90); Red Cell Distribution Width 16.9 % (11.8-14.3); White Blood Cell 16.9 10^3/uL (4.4-10.8)
[2023-03-31 04:41] LABS: Alanine Aminotransferase 20 U/L (7-40); Alkaline Phosphatase 126 U/L (46-116); Anion Gap 11 (5-15); Calcium 8.2 mg/dL (8.7-10.4); Carbon Dioxide 23 mmol/L (20-30); Chloride 109 mmol/L (98-107); Glucose 166 mg/dL (74-106); Potassium 4.2 mmol/L (3.5-5.1); Sodium 143 mmol/L (136-145)
[2023-03-31 04:42] LABS: Aspartate Aminotransferase 39 U/L (13-40); BUN/Creatinine Ratio 29.3 (10.0-20.0); Blood Urea Nitrogen 22 mg/dL (9-23)
[2023-03-31 04:43] LABS: Phosphorus 2.8 mg/dL (2.4-5.1)
[2023-03-31 04:44] LABS: Bilirubin, Total 0.4 mg/dL (0.2-1.0)
[2023-03-31 05:07] LABS: Triglycerides 120 mg/dL (< 150)
[2023-03-31 11:22] LABS: Base Excess 2.3 mmol/L (-2.0-2.0)
[2023-03-31] MEDS: TPN PER PHARMACY IV NR (20:08)
[2023-04-01] VITALS (105 sets, daily range): BP systolic 80–286; BP diastolic 49–274; PULSE 59–141; RESP 12–33; TEMP 98.8–100.4; O2SAT 99–100
[2023-04-01 04:33] LABS: Hematocrit 35.7 % (41.0-53.0); Hemoglobin 11.5 g/dL (13.5-17.5); Mean Corpuscular Hemoglobin 29.5 pg (28.0-32.0); Mean Corpuscular Hgb Conc. 32.2 g/dL (32.0-36.0); Mean Corpuscular Volume 91.7 fL (80.0-100.0); Red Blood Cells 3.89 10^6/uL (4.5-5.90); Red Cell Distribution Width 16.7 % (11.8-14.3); White Blood Cell 20.4 10^3/uL (4.4-10.8)
[2023-04-01 04:36] LABS: Basophils % (manual) 0 (0.0-2.0); Blast Cells 0; Eosinophils % (manual) 0 (0-7); Metamyelocytes % 0; Myelocytes % 0; Promyelocytes % 0; Reactive Lymphocytes 0
[2023-04-01 04:38] LABS: Alanine Aminotransferase 17 U/L (7-40); Albumin 2.9 g/dL (3.2-4.8); Alkaline Phosphatase 121 U/L (46-116); Anion Gap 7 (5-15); Aspartate Aminotransferase 28 U/L (13-40); BUN/Creatinine Ratio 46.8 (10.0-20.0); Calcium 8.3 mg/dL (8.7-10.4); Carbon Dioxide 30 mmol/L (20-30); Chloride 108 mmol/L (98-107); Glucose 161 mg/dL (74-106); Magnesium 2.3 mg/dL (1.6-2.6); Potassium 4.1 mmol/L (3.5-5.1); Sodium 145 mmol/L (136-145)
[2023-04-01 04:39] LABS: Bilirubin, Total 0.3 mg/dL (0.2-1.0); Total Protein 4.9 g/dL (5.7-8.2)
[2023-04-01 04:41] LABS: Blood Urea Nitrogen 37 mg/dL (9-23)
[2023-04-01 05:10] LABS: Band Neutrophils % (manual) 15; Lymphocytes % (manual) 10 (10.0-50.0); Monocytes % (manual) 7 (0-12); Platelet Estimate Adequate
[2023-04-01 05:19] LABS: CRP High Sensitivity 9.41 mg/dL (<1.0)
[2023-04-01] MEDS: KETOROLAC TROMETH 30 MG/ML 1ML VIAL IV ONE (16:20)
[2023-04-01] MEDS: TPN PER PHARMACY IV NR (21:19)
[2023-04-02] VITALS (109 sets, daily range): BP systolic 68–167; BP diastolic 45–127; PULSE 59–151; RESP 14–26; TEMP 97.7–100.8; O2SAT 91–100
[2023-04-02 04:32] LABS: Hematocrit 31.1 % (41.0-53.0); Hemoglobin 10.4 g/dL (13.5-17.5); Mean Corpuscular Hemoglobin 30.8 pg (28.0-32.0); Mean Corpuscular Hgb Conc. 33.3 g/dL (32.0-36.0); Mean Corpuscular Volume 92.5 fL (80.0-100.0); Red Blood Cells 3.37 10^6/uL (4.5-5.90); Red Cell Distribution Width 16.5 % (11.8-14.3); White Blood Cell 23.3 10^3/uL (4.4-10.8)
[2023-04-02 04:47] LABS: Basophils % (manual) 0 (0.0-2.0); Blast Cells 0; Eosinophils % (manual) 0 (0-7); Metamyelocytes % 0; Myelocytes % 0; Promyelocytes % 0; Reactive Lymphocytes 0
[2023-04-02 05:07] LABS: Alkaline Phosphatase 114 U/L (46-116); Anion Gap 6 (5-15); Calcium 7.8 mg/dL (8.7-10.4); Carbon Dioxide 30 mmol/L (20-30); Chloride 110 mmol/L (98-107); Glucose 146 mg/dL (74-106); Potassium 3.8 mmol/L (3.5-5.1); Sodium 146 mmol/L (136-145)
[2023-04-02 05:08] LABS: BUN/Creatinine Ratio 51.3 (10.0-20.0); Blood Urea Nitrogen 39 mg/dL (9-23); Lipase 57 U/L (12-53); Magnesium 2.5 mg/dL (1.6-2.6)
[2023-04-02 05:09] LABS: Albumin 2.7 g/dL (3.2-4.8); Aspartate Aminotransferase 33 U/L (13-40)
[2023-04-02 05:10] LABS: Bilirubin, Total 0.4 mg/dL (0.2-1.0); Phosphorus 2.6 mg/dL (2.4-5.1); Total Protein 4.6 g/dL (5.7-8.2)
[2023-04-02 05:18] LABS: Band Neutrophils % (manual) 17; Lymphocytes % (manual) 8 (10.0-50.0); Monocytes % (manual) 10 (0-12)
[2023-04-02 05:19] LABS: Platelet Estimate Adequate
[2023-04-02 05:23] LABS: Alanine Aminotransferase 16 U/L (7-40)
[2023-04-02 05:31] LABS: CRP High Sensitivity 6.25 mg/dL (<1.0)
[2023-04-02 07:27] LABS: Base Excess 4.6 mmol/L (-2.0-2.0)
[2023-04-02] MEDS: TPN PER PHARMACY IV NR (20:25)
[2023-04-02] MEDS ORDERED: Jevity 1.2 Cal/Fiber 1 Liter GT SCH (20:45)
[2023-04-03] VITALS (99 sets, daily range): BP systolic 77–148; BP diastolic 36–92; PULSE 105–143; RESP 12–32; TEMP 99.9–100.8; O2SAT 96–100
[2023-04-03] MEDS: IBUPROFEN 600 MG TAB PO ONE (02:26)
[2023-04-03 03:59] LABS: Hematocrit 30.9 % (41.0-53.0); Hemoglobin 10.1 g/dL (13.5-17.5); Mean Corpuscular Hemoglobin 30.4 pg (28.0-32.0); Mean Corpuscular Hgb Conc. 32.6 g/dL (32.0-36.0); Mean Corpuscular Volume 93.4 fL (80.0-100.0); Red Blood Cells 3.31 10^6/uL (4.5-5.90); Red Cell Distribution Width 16.3 % (11.8-14.3)
[2023-04-03 04:13] LABS: Basophils % (manual) 0 (0.0-2.0); Blast Cells 0; Eosinophils % (manual) 0 (0-7); Metamyelocytes % 0; Myelocytes % 0; Promyelocytes % 0; Reactive Lymphocytes 0
[2023-04-03 04:21] LABS: Alanine Aminotransferase 19 U/L (7-40); Albumin 2.7 g/dL (3.2-4.8); Alkaline Phosphatase 128 U/L (46-116); Anion Gap 6 (5-15); Aspartate Aminotransferase 44 U/L (13-40); BUN/Creatinine Ratio 56.3 (10.0-20.0); Blood Urea Nitrogen 40 mg/dL (9-23); Calcium 7.7 mg/dL (8.7-10.4); Carbon Dioxide 31 mmol/L (20-30); Chloride 110 mmol/L (98-107); Glucose 145 mg/dL (74-106); Magnesium 2.5 mg/dL (1.6-2.6); Potassium 3.9 mmol/L (3.5-5.1); Sodium 147 mmol/L (136-145)
[2023-04-03 04:22] LABS: Bilirubin, Total 0.5 mg/dL (0.2-1.0); Phosphorus 2.7 mg/dL (2.4-5.1); Total Protein 4.7 g/dL (5.7-8.2)
[2023-04-03 04:29] LABS: INR 1.07 (0.9-1.15); Partial Thromboplastin Time 27.3 SEC (24.5-34.5); Prothrombin Time 11.2 sec (9.3-11.8)
[2023-04-03 05:38] LABS: Band Neutrophils % (manual) 5; Lymphocytes % (manual) 8 (10.0-50.0); Monocytes % (manual) 2 (0-12)
[2023-04-03 05:39] LABS: Platelet Estimate Adequate
[2023-04-03 07:51] LABS: Base Excess 4.9 mmol/L (-2.0-2.0)
[2023-04-03] MEDS ORDERED: Glucerna 1.2 Cal 1Liter BOTTLE GT SCH (09:45)
[2023-04-03] MEDS: FUROSEMIDE 40 MG/4 ML VIAL IV SCH (10:08)
[2023-04-03] MEDS: POTASSIUM CHL 20MEQ/100ML 100 ML IV ONE (12:57)
[2023-04-03] MEDS: AMIODARONE HCL 200 MG TAB PO ONE (13:02)
[2023-04-03] MEDS: ACETAMINOPHEN 650 mg PER 20.3 mL UD PO PRN (14:12)
[2023-04-03] MEDS: TPN PER PHARMACY IV NR (20:17)
[2023-04-04] VITALS (78 sets, daily range): BP systolic 82–130; BP diastolic 34–95; PULSE 99–149; RESP 18–34; TEMP 99.1–101.1; O2SAT 72–100
[2023-04-04 04:26] LABS: Basophils # (auto) 0 10 ^3/uL (0-0.2); Basophils % (auto) 0.2 % (0.0-2.0); Eosinophils # (auto) 0.1 10 ^3/uL (0-0.8); Eosinophils % (auto) 0.3 % (0.0-7.0); Hematocrit 30.1 % (41.0-53.0); Hemoglobin 9.8 g/dL (13.5-17.5); Lymphocytes # (auto) 1.5 10 ^3/uL (0.4-5.4); Lymphocytes % (auto) 8.1 % (10.0-50.0); Mean Corpuscular Hemoglobin 30.3 pg (28.0-32.0); Mean Corpuscular Hgb Conc. 32.7 g/dL (32.0-36.0); Mean Corpuscular Volume 92.7 fL (80.0-100.0); Monocytes # (auto) 1.2 10 ^3/uL (0-1.3); Monocytes % (auto) 6.6 % (0.0-12.0); Neutrophils # (auto) 15.7 10 ^3/uL (1.6-8.6); Neutrophils % (auto) 84.8 % (37.0-80.0); Nucleated Red Blood Cells % 0.3 %; Red Blood Cells 3.25 10^6/uL (4.5-5.90); Red Cell Distribution Width 16.5 % (11.8-14.3); White Blood Cell 18.5 10^3/uL (4.4-10.8)
[2023-04-04 04:34] LABS: Alanine Aminotransferase 24 U/L (7-40); Alkaline Phosphatase 138 U/L (46-116); Anion Gap 8 (5-15); BUN/Creatinine Ratio 48.1 (10.0-20.0); Blood Urea Nitrogen 38 mg/dL (9-23); Calcium 7.9 mg/dL (8.7-10.4); Carbon Dioxide 30 mmol/L (20-30); Chloride 111 mmol/L (98-107); Glucose 101 mg/dL (74-106); Magnesium 2.5 mg/dL (1.6-2.6); Potassium 3.9 mmol/L (3.5-5.1); Sodium 149 mmol/L (136-145)
[2023-04-04 04:35] LABS: Albumin 2.6 g/dL (3.2-4.8); Aspartate Aminotransferase 58 U/L (13-40); Bilirubin, Total 0.8 mg/dL (0.2-1.0); Phosphorus 3.1 mg/dL (2.4-5.1); Total Protein 4.6 g/dL (5.7-8.2)
[2023-04-04] MEDS: ACETAMINOPHEN IV 1000 MG/100ML (10MG/ML) IV ONE (05:56)
[2023-04-04] MEDS: ACETAMINOPHEN IV 100 ML IV ONE (05:57)
[2023-04-04] MEDS: AMIODARONE HCL 200 MG TAB PO SCH (08:54)
[2023-04-04] MEDS: FREE WATER GT SCH (08:54)
[2023-04-04] MEDS: TPN PER PHARMACY IV NR (20:20)
[2023-04-05] VITALS (18 sets, daily range): BP systolic 120–131; BP diastolic 52–65; PULSE 88–126; RESP 17–30; TEMP 99.1–100.8; O2SAT 95–100
[2023-04-05] MEDS ORDERED: Glucerna 1.2 Cal 1Liter BOTTLE GT SCH ×2 (07:15→08:15)
[2023-04-05] MEDS: FLUCONAZOLE 200MG/100ML 100 ML IV SCH ×2 (08:06→08:57)
[2023-04-05] MEDS ORDERED: FLUCONAZOLE 200MG/100ML 100 ML IV SCH (10:00)
[2023-04-05 12:41] LABS: Basophils # (auto) 0.1 10 ^3/uL (0-0.2); Basophils % (auto) 0.4 % (0.0-2.0); Eosinophils # (auto) 0.1 10 ^3/uL (0-0.8); Eosinophils % (auto) 0.5 % (0.0-7.0); Hematocrit 28.8 % (41.0-53.0); Hemoglobin 9.3 g/dL (13.5-17.5); Lymphocytes # (auto) 1.3 10 ^3/uL (0.4-5.4); Lymphocytes % (auto) 8.4 % (10.0-50.0); Mean Corpuscular Hemoglobin 30.2 pg (28.0-32.0); Mean Corpuscular Hgb Conc. 32.4 g/dL (32.0-36.0); Mean Corpuscular Volume 93.4 fL (80.0-100.0); Monocytes # (auto) 0.8 10 ^3/uL (0-1.3); Monocytes % (auto) 5.5 % (0.0-12.0); Neutrophils % (auto) 85.2 % (37.0-80.0); Nucleated Red Blood Cells % 0.1 %; Red Blood Cells 3.08 10^6/uL (4.5-5.90); Red Cell Distribution Width 16.7 % (11.8-14.3); White Blood Cell 15.2 10^3/uL (4.4-10.8)
[2023-04-05 12:51] LABS: Alanine Aminotransferase 26 U/L (7-40); Albumin 2.6 g/dL (3.2-4.8); Alkaline Phosphatase 116 U/L (46-116); Anion Gap 4 (5-15); Aspartate Aminotransferase 63 U/L (13-40); BUN/Creatinine Ratio 46.1 (10.0-20.0); Blood Urea Nitrogen 41 mg/dL (9-23); Calcium 7.5 mg/dL (8.7-10.4); Carbon Dioxide 33 mmol/L (20-30); Chloride 111 mmol/L (98-107); Glucose 164 mg/dL (74-106); Magnesium 2.6 mg/dL (1.6-2.6); Potassium 3.7 mmol/L (3.5-5.1); Sodium 148 mmol/L (136-145)
[2023-04-05 12:52] LABS: Bilirubin, Total 0.6 mg/dL (0.2-1.0); Phosphorus 3.6 mg/dL (2.4-5.1); Total Protein 4.5 g/dL (5.7-8.2)
[2023-04-05] MEDS: CYANOCOBALAMIN (B-12) 1000 MCG/1 ML VIAL IM ONE (15:00)
[2023-04-05] MEDS: ERGOCALCIFEROL 50,000 UNIT(1.25MG) CAP PO SCH (16:03)
[2023-04-05] MEDS ORDERED: ENOXAPARIN SOD 100 MG/1 ML SYRINGE SC SCH (22:00)
[2023-04-06] VITALS (28 sets, daily range): BP systolic 87–131; BP diastolic 40–70; PULSE 90–132; RESP 14–24; TEMP 99.3–101.3; O2SAT 87–100
[2023-04-06 05:54] LABS: Chloride 112 mmol/L (98-107); Potassium 3.7 mmol/L (3.5-5.1); Sodium 148 mmol/L (136-145)
[2023-04-06 05:55] LABS: Anion Gap 7 (5-15); Calcium 7.9 mg/dL (8.7-10.4); Carbon Dioxide 29 mmol/L (20-30)
[2023-04-06 05:56] LABS: Basophils # (auto) 0.1 10 ^3/uL (0-0.2); Basophils % (auto) 0.4 % (0.0-2.0); Eosinophils # (auto) 0.1 10 ^3/uL (0-0.8); Eosinophils % (auto) 0.5 % (0.0-7.0); Hematocrit 31.7 % (41.0-53.0); Lymphocytes # (auto) 1.4 10 ^3/uL (0.4-5.4); Lymphocytes % (auto) 9.9 % (10.0-50.0); Mean Corpuscular Hemoglobin 29.9 pg (28.0-32.0); Mean Corpuscular Hgb Conc. 31.7 g/dL (32.0-36.0); Mean Corpuscular Volume 94.3 fL (80.0-100.0); Monocytes # (auto) 1.1 10 ^3/uL (0-1.3); Monocytes % (auto) 7.8 % (0.0-12.0); Neutrophils # (auto) 11.1 10 ^3/uL (1.6-8.6); Neutrophils % (auto) 81.4 % (37.0-80.0); Nucleated Red Blood Cells % 0.2 %; Red Blood Cells 3.36 10^6/uL (4.5-5.90); Red Cell Distribution Width 17.3 % (11.8-14.3); White Blood Cell 13.6 10^3/uL (4.4-10.8)
[2023-04-06 06:00] LABS: BUN/Creatinine Ratio 34.9 (10.0-20.0); Glucose 117 mg/dL (74-106)
[2023-04-06 06:14] LABS: Blood Urea Nitrogen 29 mg/dL (9-23)
[2023-04-06] MEDS: ENOXAPARIN SOD 30 MG/0.3 ML SYRINGE SC SCH (07:52)
[2023-04-06] MEDS: B-COMPLEX W/ C & FOLIC ACID(NEPHROVITE TAB) PO SCH (07:52)
[2023-04-06 09:09] LABS: Base Excess 4.7 mmol/L (-2.0-2.0)
[2023-04-06] MEDS: IRON SUCROSE COMPLEX 100 ML IV SCH (11:23)
[2023-04-07] VITALS (19 sets, daily range): BP systolic 88–133; BP diastolic 35–62; PULSE 88–137; RESP 14–25; TEMP 99.7–100.6; O2SAT 92–100
[2023-04-07 06:10] LABS: Basophils # (auto) 0.1 10 ^3/uL (0-0.2); Basophils % (auto) 0.6 % (0.0-2.0); Eosinophils # (auto) 0.1 10 ^3/uL (0-0.8); Eosinophils % (auto) 0.5 % (0.0-7.0); Hematocrit 30.9 % (41.0-53.0); Hemoglobin 9.7 g/dL (13.5-17.5); Lymphocytes # (auto) 1.1 10 ^3/uL (0.4-5.4); Lymphocytes % (auto) 8.2 % (10.0-50.0); Mean Corpuscular Hgb Conc. 31.4 g/dL (32.0-36.0); Mean Corpuscular Volume 98.5 fL (80.0-100.0); Monocytes # (auto) 0.8 10 ^3/uL (0-1.3); Neutrophils % (auto) 84.7 % (37.0-80.0); Nucleated Red Blood Cells % 0.1 %; Red Blood Cells 3.14 10^6/uL (4.5-5.90)
[2023-04-07 06:13] LABS: Alanine Aminotransferase 27 U/L (7-40); Albumin 2.5 g/dL (3.2-4.8); Alkaline Phosphatase 111 U/L (46-116); Anion Gap 8 (5-15); BUN/Creatinine Ratio 23.8 (10.0-20.0); Blood Urea Nitrogen 20 mg/dL (9-23); Calcium 7.8 mg/dL (8.7-10.4); Carbon Dioxide 27 mmol/L (20-30); Chloride 115 mmol/L (98-107); Glucose 112 mg/dL (74-106); Magnesium 2.6 mg/dL (1.6-2.6); Potassium 3.5 mmol/L (3.5-5.1); Sodium 150 mmol/L (136-145)
[2023-04-07 06:14] LABS: Aspartate Aminotransferase 66 U/L (13-40); Bilirubin, Total 0.7 mg/dL (0.2-1.0); Total Protein 4.5 g/dL (5.7-8.2)
[2023-04-07] MEDS: FREE WATER GT SCH ×2 (08:58→10:00)
[2023-04-07] MEDS ORDERED: D5W/SOD CHL 0.45% 1,000 ML IV SCH (09:30)
[2023-04-07] MEDS: D5W 5% 1,000 ML IV SCH (12:29)
[2023-04-08] VITALS (15 sets, daily range): BP systolic 93–117; BP diastolic 43–67; PULSE 88–118; RESP 14–23; TEMP 98.8–100.2; O2SAT 84–100
[2023-04-08 07:40] LABS: Chloride 114 mmol/L (98-107); Potassium 3.1 mmol/L (3.5-5.1); Sodium 152 mmol/L (136-145)
[2023-04-08 07:41] LABS: Anion Gap 5 (5-15); Calcium 8.3 mg/dL (8.5-10.1); Carbon Dioxide 33 mmol/L (20-30)
[2023-04-08 07:46] LABS: BUN/Creatinine Ratio 29.8 (10.0-20.0); Blood Urea Nitrogen 25 mg/dL (9-23); Glucose 97 mg/dL (74-106)
[2023-04-08 07:54] LABS: Base Excess 6.9 mmol/L (-2.0-2.0)
[2023-04-08] MEDS: POTASSIUM CHL 20MEQ/100ML 100 ML IV SCH (10:02)
== END 2023-04-08 12:53 | disposition hospice, inpatient (51) | DRG 853 ==
LOC: EDBD 03:58 → ER 03:58 → OVERFLOW 06:22 → CENTRAL 10:20 → EAST 03-21 08:57 → ICU WEST 03-21 12:28 → DOU IN ICU 04-04 17:28
PROVIDERS: ADMIT Internal Medicine; ATTEND Internal Medicine
PROC: 0D9670Z Drainage of Stomach with Drainage Device, Via Natural or Artificial Opening (ICD-10-PCS; 2023-03-20)
PROC: 0WQF0ZZ Repair Abdominal Wall, Open Approach (ICD-10-PCS; 2023-03-21)
PROC: 5A1955Z Respiratory Ventilation, Greater than 96 Consecutive Hours (ICD-10-PCS; 2023-03-21)
PROC: 0BH17EZ Insertion of Endotracheal Airway into Trachea, Via Natural or Artificial Opening (ICD-10-PCS; 2023-03-21)
PROC: 02HV33Z Insertion of Infusion Device into Superior Vena Cava, Percutaneous Approach (ICD-10-PCS; 2023-03-21)
PROC: B548ZZA Ultrasonography of Superior Vena Cava, Guidance (ICD-10-PCS; 2023-03-21)
PROC: 0FT40ZZ Resection of Gallbladder, Open Approach (ICD-10-PCS; 2023-03-25)
PROC: 0DB80ZZ Excision of Small Intestine, Open Approach (ICD-10-PCS; 2023-03-25)
PROC: 30233N1 Transfusion of Nonautologous Red Blood Cells into Peripheral Vein, Percutaneous Approach (ICD-10-PCS; 2023-03-25)
PROC: 05H933Z Insertion of Infusion Device into Right Brachial Vein, Percutaneous Approach (ICD-10-PCS; 2023-03-25)
PROC: B54MZZA Ultrasonography of Right Upper Extremity Veins, Guidance (ICD-10-PCS; 2023-03-25)
PROC: 0DBL0ZZ Excision of Transverse Colon, Open Approach (ICD-10-PCS; principal; 2023-03-25 09:16)
DX: A41.9 Sepsis, unspecified organism (principal); I50.33 Acute on chronic diastolic (congestive) heart failure; N17.0 Acute kidney failure with tubular necrosis; J16.8 Pneumonia due to other specified infectious organisms; J96.01 Acute respiratory failure with hypoxia; R65.21 Severe sepsis with septic shock; K42.0 Umbilical hernia with obstruction, without gangrene; B49 Unspecified mycosis; E46 Unspecified protein-calorie malnutrition; J44.0 Chronic obstructive pulmonary disease with (acute) lower respiratory infection; J98.11 Atelectasis; K59.39 Other megacolon; N39.0 Urinary tract infection, site not specified; K59.00 Constipation, unspecified; N40.1 Benign prostatic hyperplasia with lower urinary tract symptoms; I48.0 Paroxysmal atrial fibrillation; E78.5 Hyperlipidemia, unspecified; E07.9 Disorder of thyroid, unspecified; R33.8 Other retention of urine; D50.9 Iron deficiency anemia, unspecified; E16.2 Hypoglycemia, unspecified; I11.0 Hypertensive heart disease with heart failure; I25.10 Atherosclerotic heart disease of native coronary artery without angina pectoris; I45.10 Unspecified right bundle-branch block; K81.9 Cholecystitis, unspecified; Z95.0 Presence of cardiac pacemaker; Z79.01 Long term (current) use of anticoagulants; Z88.8 Allergy status to other drugs, medicaments and biological substances; Z68.24 Body mass index [BMI] 24.0-24.9, adult
CPT/HCPCS: 36415; 36600; 70450; 71045; 71046; 74018; 74176; 74177; 74250; 80048; 80053; 80061; 80076; 80202; 80307; 81001; 82140; 82306; 82550; 82607; 82746; 82805; 82962; 83036; 83540; 83550; 83605; 83615; 83690; 83735; 84100; 84132; 84153; 84443; 84478; 85007; 85025; 85027; 85045; 85610; 85730; 86141; 86850; 86900; 86901; 86920; 87040; 87070; 87077; 87081; 87086; 87088; 87186; 87205; 88302; 93005; 93971; 94002; 94003; 94640; 96361; 96374; 96375; C1781; C9113; G0378; J0131; J1450; J1756; J1815; J1885; J2001; J2185; J2250; J2405; J3480; J3490; J7042; J7060